=== PATIENT | male | born 1995 ===

== ENCOUNTER 2017-12-25 15:27 | Inpatient (IN) ==
--- NOTE | 2017-12-25 15:48 | ERNOTE ---
Abdominal HPI - General Time Seen by Provider: 12/25/17 15:35 Source: patient Exam Limitations: no limitations - Immun/Allergies/Home Medications Home Medications: HOME MEDICATIONS NK 12/25/17 [Last Taken Unknown] - History of Present Illness Narrative: Patient has had abdominal pain and diarrhea for two days,w as seen in the [place] [facility] and diagnosed with acute appendicitis. [facility] called around 14:[address] discussion with Dr Knapp patient was accepted here, he received pain meds, IV zosyn and fluids and arrived by private car. Dr Knapp present and will assume care Review of Systems - Review of Systems Constitutional: Absent: recent illness, fever ENT: Present: no symptoms reported Respiratory: Absent: shortness of breath Cardiology: Absent: chest pain Gastrointestinal/Abdominal: Present: See HPI Genitourinary: Absent: no symptoms reported Surgical History: Surgical History (Last Updated 12/25/17 @ 15:47 by Gabriela Thomson MD) History of dental surgery Physical Exam - Physical Exam General Appearance: Present: wd/wn, alert, no apparent distress Respiratory: Present: no respiratory distress, normal breath sounds, lungs clear Cardiovascular/Chest: Present: regular rate, rhythm, no murmur Gastrointestinal/Abdominal: Present: normal bowel sounds, tenderness Neurological Exam: Present: alert, oriented, normal mood/affect Skin Exam: Present: normal color, warm/dry ED Progress - Results and Orders Results and Orders: reviewed chart and labs from [place] - Vital Signs Patient's Vital Signs:: I have reviewed the patient's vital signs. Departure Clinical Impression: Appendicitis, acute Qualifiers: Acute appendicitis type: unspecified acute appendicitis type Qualified Code(s) : K35.80 - Unspecified acute appendicitis - Departure Disposition: Still a patient Condition: Fair
[2017-12-25] MEDS ORDERED: NORMAL SALINE 1,000 ML IV ONE (15:49)
--- NOTE | 2017-12-25 16:09 | ERNOTE ---
Abdominal HPI - Narrative Date of Service: 12/25/17 - General Chief Complaint: Abdominal Pain Time Seen by Provider: 12/25/17 15:35 Source: patient Exam Limitations: no limitations - Immun/Allergies/Home Medications Immunizatons: IMMUNIZATION HX Immunizations Up to Date Yes Home Medications: HOME MEDICATIONS NK 12/25/17 [Last Taken Unknown] - History of Present Illness Narrative: James is a very pleasant 22-year-old male who is otherwise healthy. He developed abdominal pain over the last couple of days which has worsened, and is located in the right lower quadrant. This has also been experiencing diarrhea. Over the last several months he has been having 3-4 bowel movements a day. Half of these are loose, half of these are formed. He has not noticed any blood in his stool. He was adopted, his adopted father said they did not receive any family health history that suggested inflammatory bowel disease. He has never had a colonoscopy. His father accompanies him today. He was transferred from [place]. He has felt nauseated but has not vomited. He has not had anything to eat. Date (Duration): 12/23/17 Timing: getting worse Quality: severe Activities at Onset: none Modifying Factors - (Improves): Present: analgesics Modifying Factors - (Worsens): Present: coughing, movement Associated Symptoms: Present: other - diarrhea without blood Prior Abdominal Problems: Present: none Review of Systems - Review of Systems Constitutional: Present: malaise EYE: Present: no symptoms reported ENT: Present: no symptoms reported Respiratory: Present: no symptoms reported Cardiology: Present: no symptoms reported Gastrointestinal/Abdominal: Present: nausea, diarrhea, eating less, drinking less Genitourinary: Present: no symptoms reported, other - dark-colored urine Skin: Present: no symptoms reported Neurological: Present: no symptoms reported Endocrine: Present: no symptoms reported Hematologic/Lymphatic: Present: no symptoms reported Psych: Present: no symptoms reported Surgical History: Surgical History (Last Reviewed 12/25/17 @ 16:04 by America Knapp DO) History of dental surgery Social History: Preferred Language Sinhala Alcohol Use none Drug Use none Physical Exam - Physical Exam General Appearance: Present: mild distress Head Exam: Present: normal inspection Eye Exam: Normal inspection: bilateral Ears, Nose, Throat: Absent: hearing decreased Neck: Present: normal inspection Respiratory: Present: no respiratory distress, normal breath sounds, lungs clear Cardiovascular/Chest: Present: regular rate, rhythm, no murmur Gastrointestinal/Abdominal: Present: normal bowel sounds, McBurney sign, Sher sign Extremity Exam: Present: normal inspection Neurological Exam: Present: alert, oriented, normal mood/affect, no motor/ sensory deficits Skin Exam: Present: normal color ED Progress - Results and Orders Patient's Lab Results:: I have reviewed the patient's lab results. - Vital Signs Patient's Vital Signs:: I have reviewed the patient's vital signs. Vital Signs: Vital Signs 12/25/17 15:43 12/25/17 15:51 Temperature 37.7 C Pulse Rate 79 84 Respiratory Rate 12 12 Blood Pressure 109/55 O2 Sat by Pulse Oximetry 98 98 - Progress/Reassessment Chief Complaint: Abdominal Pain Progress:: Unchanged Plan - Plan Plan: Patient has received Zosyn in [place]. He will receive further IV fluids in the ER. I reviewed his CT scan images. These are consistent with acute appendicitis. It is unusual that he has been having loose stools, I did not see thickening of the terminal ileum, I will evaluate this during surgery. Risks and benefits of the procedure were discussed with the patient, and we will proceed with laparoscopic appendectomy, possible open. He voices understanding and would like to proceed. All questions were answered. Departure Clinical Impression: Appendicitis, acute Qualifiers: Acute appendicitis type: unspecified acute appendicitis type Qualified Code(s) : K35.80 - Unspecified acute appendicitis - Departure Disposition: Still a patient Condition: Fair
--- NOTE | 2017-12-25 16:42 | ANES ---
Anesthesia Pre Procedure Eval Vitals/Labs: Last Vital Signs Temp 37.7 C 12/25/17 15:43 Pulse 81 12/25/17 16:31 Resp 12 12/25/17 16:31 BP 126/51 12/25/17 16:31 Pulse Ox 99 12/25/17 16:31 HOME MEDICATIONS NK 12/25/17 [Last Taken Unknown] - Planned Procedure Planned Procedure: lap appy Medication List Reviewed:: Yes Allergies Verified: Yes Surgical History (Last Reviewed 12/25/17 @ 16:41 by Noel Preciado CRNA) History of dental surgery - Family Anesthesia History Family History:: no untoward family reactions to anesthesia, no familial bleeding tendencies, no family history of clotting disorders, no family history of premature - Airway/Neck/Teeth Within Normal Limits:: Yes Teeth Condition: Intact Mallampatti Score: 4 Thyromental (T-M) distance: > 6 cm Mandibulo Hyoid distance: > 3 cm - Respiratory Respiratory: lungs clear Smoking Status: Never smoker Discussed smoking cessation including day of surgery: No Sleep Apnea currently treated: No Sleep Apnea by current assessment: No Discussed Risks/Treatment of MELI: No - Cardiovascular Heart Sounds: S1 & S2, Regular - Anesthesia Assessment and Plan ASA Class: PS, I, E Anesthesia Type Plan: General ET
[2017-12-25] MEDS ORDERED: BUPIVACAINE HCL 50 ML VIAL IJ ONE (18:00)
[2017-12-25] MEDS ORDERED: HYDROmorphone HCL 2 MG/ML VIAL IV PRN (18:23)
[2017-12-25] MEDS ORDERED: diphenhydrAMINE HCL 50 MG/ML VIAL IV PRN (18:23)
[2017-12-25] MEDS ORDERED: ONDANSETRON HCL/PF 2 MG/ML VIAL IV PRN ×3 (18:23→18:27)
[2017-12-25] MEDS ORDERED: PROCHLORPERAZINE EDISYLATE 5 MG/ML VIAL IV PRN (18:23)
[2017-12-25] MEDS ORDERED: NALOXONE HCL 0.4 MG/ML VIAL IV PRN (18:23)
[2017-12-25] MEDS ORDERED: HYDROcodone/ACETAMINOPHEN 1 EACH TABLET PO PRN ×2 (18:25→18:27)
--- NOTE | 2017-12-25 18:25 | ANES ---
Post Anesthesia Discharge - Transfer of Care Transfer of Care handoff given to nurse: Yes - Discharge from PACU Discharge from PACU when meets criteria: Yes - Discharge to ASU Discharge to ASU-no complications/pt stable: Yes
[2017-12-25] MEDS ORDERED: HYDROmorphone HCL 1 MG/ML DISP.SYRIN IV PRN (18:27)
[2017-12-25] MEDS ORDERED: RINGER'S SOLUTION,LACTATED 1,000 ML IV ONE (18:29)
--- NOTE | 2017-12-25 18:31 | ANES ---
Post Anesthesia Assessment - Vital Signs Vitals: Last Vital Signs Temp 37.7 C 12/25/17 15:43 Pulse 77 12/25/17 16:48 Resp 12 12/25/17 16:48 BP 101/41 12/25/17 16:48 Pulse Ox 99 12/25/17 16:48 Airway Patency: Normal - Mental Status Level Of Consciousness: Awake - Pain Level Pain Score: 6 - N/V Assessment Nausea/Vomiting Presence: None Dehydration:: No
--- NOTE | 2017-12-25 18:36 | OR ---
Operative Report - Dictated Report Narrative: Date of Service: 12/25/17 Procedure: laparoscopic appendectomy with washout Pre-procedure diagnosis: acute appendicitis Post-procedure diagnosis: perforated appendicitis Surgeon: Dr. America Knapp Supervisor Underwriting Clerks: Marguerite Anesthesia: general Indication for procedure: James is a very pleasant 22-year-old gentleman who has been having abdominal pain for the last couple of days, he was seen in the [facility], and found to have acute appendicitis. He was transferred here for surgical management. He has also been having trouble with diarrhea alternating with constipation. He was adopted, but they deny a family history of Crohn's or inflammatory bowel disease, no bloody stools. Description of procedure: After appropriate informed consent was obtained patient was taken to the operating room, placed in the supine position. General anesthesia was achieved. The RN placed a Carolina catheter. The patient was prepped and draped in the usual sterile fashion. A 5 mm periumbilical incision was made, hemostat was used to dissect down to the fascia. A Veress needle was inserted, a saline drop test was performed which was satisfactory. The abdomen was insufflated to 15 mmHg. A 5mm blunt trocar was placed at the umbilicus. The camera was inserted, there was no evidence of a trocar injury. A 12 mm trocar was placed in the left lower quadrant of the abdomen. A 5 mm trocar was placed in the suprapubic region. The patient was placed in a head down, rotated left position, to facilitate exposure. There was significant purulent fluid in all quadrants of the abdomen. The appendix was identified, it appeared consistent with acute perforated appendicitis. A window was made in the mesoappendix. The 45 mm echelon stapler with the white load was placed across the base of the appendix. There was good hemostasis. The echelon 45 mm stapler with a white load was then placed across the mesoappendix. There was good hemostasis. The appendix was removed through an Endo Catch bag. The abdomen was inspected and the staple lines were intact, with good hemostasis. The remainder of the abdomen was inspected and was satisfactory. The abdomen was washed out, to remove the purulent fluid. Culture was taken of the purulent fluid using a trap. A 15 Welsh drain was placed through the suprapubic port site, and sutured in place with a 3-0 nylon. The 12 mm trocar site was closed with an 0 Vicryl suture using a PMI device. The abdomen was desufflated. Local anesthetic was injected. The incisions were closed with inverted interrupted 4-0 Monocryl sutures. Mastisol and Steri-Strips were applied. The patient tolerated the procedure well and was transported to the PACU in satisfactory condition. Estimated blood loss: minimal Complications: none Specimens to pathology: appendix and cultures Disposition: The patient will be admitted to the floor for observation and IV antibiotics.
[2017-12-25] MEDS: PIPERACILLIN SODIUM/TAZOBACTAM 3.375 GM in DEXTROSE 5 % IN WATER 100 ML IV SCH ×2 (19:47)
[2017-12-25] MEDS: SACCHAROMYCES BOULARDII 250 MG CAPSULE PO SCH (20:59)
[2017-12-26] MEDS: RINGER'S SOLUTION,LACTATED 1,000 ML IV PRN ×2 (01:05→07:27)
[2017-12-26] MEDS ORDERED: HYDROcodone/ACETAMINOPHEN 1 EACH TABLET ONE (03:01)
[2017-12-26] MEDS: PIPERACILLIN SODIUM/TAZOBACTAM 3.375 GM in DEXTROSE 5 % IN WATER 100 ML IV SCH ×6 (03:02→18:39)
[2017-12-26 05:26] LABS: Hematocrit 39.9 % (42.0-52.0); Hemoglobin 13.5 gm/dL (13.5-18.0); Mean Cell Volume 90.1 fl (78-100); Mean Corpuscular Hemoglobin 30.5 pg (27-31); Mean Corpuscular Hgb Conc 33.8 g/dl (32-36); Mean Platelet Volume 10.1 fl (8-11.3); Neutrophil # 8.1 K/mm3 (1.3-6.0); Neutrophil % 80.9 % (42-75.0); Platelet Count 120 K/mm3 (150-450); Red Blood Count 4.43 M/mm3 (4.7-6.0); Red Cell Distribution Width 12.4 % (11.5-14.0)
[2017-12-26 05:38] LABS: Anion Gap 10.7 mmol/L (6.8-13.8); BUN/Creatinine Ratio 17.9 (9.0-21.6); Calcium * 8.4 mg/dL (7.9-10.9); Carbon Dioxide 29.2 mmol/L (24-32.6); Estimated Creat Clear 101.4; Potassium 3.9 mmol/L (3.4-4.6)
[2017-12-26] MEDS: SACCHAROMYCES BOULARDII 250 MG CAPSULE PO SCH ×2 (08:35→21:28)
[2017-12-26] MEDS: HYDROcodone/ACETAMINOPHEN 1 EACH TABLET PO PRN ×3 (10:25→23:08)
--- NOTE | 2017-12-26 10:48 | PN ---
Subjective - Date and Time Seen Date: 12/26/17 Time: 10:42 Subjective Narrative: James is feeling better than before surgery, but still having significant pain. He has pain on both the right and lower quadrant. He denies any nausea or vomiting. The pain medication is working. He is voiding more, and it is a helium arc welder color. Objective - Review of Systems Generalized/Overall Review: Reports: Malaise EENTM: Reports: No Symptoms Reported Respiratory: Reports: No Symptoms Reported Cardiac: Reports: No Symptoms Reported Abdominal: Reports: Abdominal Pain, Other - He had a bowel movement this morning Genitourinary Symptoms: Reports: No Symptoms Reported Neurological: Reports: No Symptoms Reported Skin: Reports: No Symptoms Reported Endocrine: Reports: No Symptoms Reported - Vitals Vitals: Last Vital Signs Temp 36.6 C 12/26/17 10:27 Pulse 84 12/26/17 10:27 Resp 18 12/26/17 10:27 BP 113/57 12/26/17 10:27 Pulse Ox 98 12/26/17 10:27 - Abnormal Lab Findings Abnormal Lab Findings: Abnormal Lab Results 12/26/17 12/26/17 Range/Units 05:20 05:20 RBC 4.43 L (4.7-6.0) M/mm3 Hct 39.9 L (42.0-52.0) % Plt Count 120 L (150-450) K/mm3 Neutrophils % 80.9 H (42-75.0) % Lymphocytes % 10.7 L (20-51) % Neutrophils # 8.1 H (1.3-6.0) K/mm3 Lymphocytes # 1.07 L (1.5-3.5) k/mm3 Random Glucose 112 H (70-110) mg/dL - Exam Constitutional: Present: Oriented x3 Respiratory: Present: lungs clear, no respiratory distress Cardiovascular/Chest: Present: no edema, no JVD Abdomen: Present: Normal bowel sounds, nondistended, tender Skin Exam: Present: normal color Assessment/Plan Plan Narrative: Patient is still having significant pain. I think he needs to stay an additional day for IV antibiotics. He had significant purulent peritonitis present. I will leave the GILLES drain. I am awaiting the culture taken during surgery for sensitivities to antibiotics. Thankfully his lactic acidosis resolved after surgery and fluids. - Problems/Diagnosis (1) Acute perforated appendicitis Problem: Resolved (2) Status post laparoscopic appendectomy Problem: Acute (3) Lactic acidosis Problem: Resolved (4) Sepsis Problem: Resolved
[2017-12-27] MEDS: PIPERACILLIN SODIUM/TAZOBACTAM 3.375 GM in DEXTROSE 5 % IN WATER 100 ML IV SCH ×6 (03:01→18:44)
[2017-12-27] MEDS: HYDROcodone/ACETAMINOPHEN 1 EACH TABLET PO PRN ×2 (05:25→16:06)
[2017-12-27] MEDS: SACCHAROMYCES BOULARDII 250 MG CAPSULE PO SCH ×2 (08:18→21:10)
--- NOTE | 2017-12-27 13:00 | PN ---
Subjective - Date and Time Seen Date: 12/27/17 Time: 09:00 Subjective Narrative: Patient is feeling better today, but still has pain when he takes a deep breath under the diaphragm. This is likely due to the GILLES drain. Overall he is slightly improved, but is still uncomfortable. He had a bowel movement. He denies nausea or vomiting, but does not have an appetite. He is walking more than he was previously. Objective - Review of Systems Generalized/Overall Review: Reports: Malaise Respiratory: Reports: Other - Pain with respiration Abdominal: Reports: Abdominal Pain - Vitals Vitals: Last Vital Signs Temp 36.9 C 12/27/17 10:35 Pulse 55 L 12/27/17 10:35 Resp 16 12/27/17 10:35 BP 115/66 12/27/17 10:35 Pulse Ox 98 12/27/17 10:35 - Exam Constitutional: Present: Alert, Oriented x3, Cooperative Respiratory: Present: normal breath sounds, no respiratory distress, no accessory muscle use Cardiovascular/Chest: Present: regular rate, rhythm, no edema Abdomen: Present: Normal bowel sounds, soft, tender Appearance: Present: appropriate appearance Eye contact: Present: cooperative Assessment/Plan Plan Narrative: He removed his GILLES drain. He is still having significant pain. I'm awaiting the results from the culture from surgery. I would like to have the sensitivities for oral antibiotics. He had significant contamination of his abdomen with generalized peritonitis, with purulent fluid throughout the abdomen. He is at a high risk for developing a postoperative abscess seen or ileus. We'll check with him this afternoon and see how he is feeling. 1330- patient continues to have abdominal pain and general malaise, due to the generalized peritonitis, I would like him to stay an additional day for IV antibiotics. - Problems/Diagnosis (1) Acute perforated appendicitis Problem: Resolved (2) Status post laparoscopic appendectomy Problem: Acute (3) Lactic acidosis Problem: Resolved (4) Sepsis Problem: Resolved (5) Generalized (acute) peritonitis Problem: Acute
[2017-12-28] MEDS: HYDROcodone/ACETAMINOPHEN 1 EACH TABLET PO PRN (02:29)
[2017-12-28] MEDS: PIPERACILLIN SODIUM/TAZOBACTAM 3.375 GM in DEXTROSE 5 % IN WATER 100 ML IV SCH ×2 (02:30)
[2017-12-28] MEDS ORDERED: PANTOPRAZOLE SODIUM 20 MG TABLET.DR PO PRN (07:20)
[2017-12-28] MEDS ORDERED: AMOX TR/POTASSIUM CLAVULANATE 875 MG TABLET PO SCH ×2 (09:00)
[2017-12-28] MEDS ORDERED: SULFAMETHOXAZOLE/TRIMETHOPRIM 1 TAB TABLET PO SCH (09:00)
--- NOTE | 2017-12-28 09:31 | PN ---
Subjective - Date and Time Seen Date: 12/28/17 Time: 09:28 Subjective Narrative: He is feeling much better today, pain is improved. He feels ready for discharge. The oral pain medicine is effective. He had a bowel movement. Objective - Review of Systems Generalized/Overall Review: Reports: No Symptoms Reported Respiratory: Reports: No Symptoms Reported Abdominal: Reports: Abdominal Pain - Improved - Vitals Vitals: Last Vital Signs Temp 36.7 C 12/28/17 07:49 Pulse 53 L 12/28/17 07:49 Resp 16 12/28/17 07:49 BP 104/50 12/28/17 07:49 Pulse Ox 98 12/28/17 07:49 - Exam Constitutional: Present: Alert, Oriented x3, Cooperative Abdomen: Present: Normal bowel sounds, soft, tender Skin Exam: Present: normal color Appearance: Present: appropriate appearance Eye contact: Present: cooperative, good eye contact Thoughts: Present: normal thought pattern Assessment/Plan Plan Narrative: We'll plan to discharge home today. His culture and sensitivity just returned, he is MRSA positive. I placed him on Bactrim. He will follow up with me in 2 weeks. He understands to call if he has any problems such as abdominal pain, fevers, nausea, vomiting, or any other changes. Due to the widespread peritonitis here for the high risk for a postoperative abscess. - Problems/Diagnosis (1) Acute perforated appendicitis Problem: Resolved (2) Status post laparoscopic appendectomy Problem: Acute (3) Lactic acidosis Problem: Resolved (4) Sepsis Problem: Resolved (5) Generalized (acute) peritonitis Problem: Acute (6) MRSA (methicillin resistant staph aureus) culture positive Problem: Acute
[2017-12-28] MEDS: SACCHAROMYCES BOULARDII 250 MG CAPSULE PO SCH (09:57)
--- NOTE | 2017-12-28 12:40 | DS ---
(1) Acute perforated appendicitis Problem: Resolved (2) Status post laparoscopic appendectomy Problem: Acute (3) Lactic acidosis Problem: Resolved (4) Sepsis Problem: Resolved Qualifiers: Sepsis type: methicillin resistant Staphylococcus aureus Qualified Code(s) : A41.02 - Sepsis due to Methicillin resistant Staphylococcus aureus (5) Generalized (acute) peritonitis Problem: Acute (6) MRSA (methicillin resistant staph aureus) culture positive Problem: Acute Description of Stay: pt had a ct showing acute appy. he had diffuse peritonitis at surgery with significant contamination. drain was placed. he stayed for pain and IV antibiotics for generalized peritonitis and sepsis. he is now ready for dc on bactrim and oral pain meds. Procedures Performed: see notes below List Procedures: lap appy with washout Results and Findings: Lab Pending Results 12/25/17 18:45: Pathology Specimen Spec to path 12/25/17 22:22: Lactic Acid, Venous 0.8 12/26/17 05:20: WBC 10.0, RBC 4.43 L, Hgb 13.5, Hct 39.9 L, MCV 90.1, MCH 30.5, MCHC 33.8, RDW 12.4, Plt Count 120 L, MPV 10.1, Immature Gran % (Auto) 0.10, Immature Gran # (Auto) 0.01, Neutrophils % 80.9 H, Lymphocytes % 10.7 L, Monocytes % 7.4, Eosinophils % 0.6, Basophils % 0.3, Nucleated RBC % 0.0, Neutrophils # 8.1 H, Lymphocytes # 1.07 L, Monocytes # 0.7, Eosinophils # 0.1, Absolute Basophils 0.0 12/26/17 05:20: Sodium 140, Plasma Sodium 140, Potassium 3.9, Chloride 104, Carbon Dioxide 29.2, Anion Gap 10.7, BUN 21, Creatinine 1.17, Est GFR (Non-Af Amer) 82, BUN/Creatinine Ratio 17.9, Random Glucose 112 H, Calcium 8.4 12/26/17 05:20: Lactic Acid, Venous 0.7 Discharge Location: Home Disposition: Home self-care Condition: Stable Discharge Activity: Activity as tolerated Discharge Diet: General/regular food Problem Oriented Discharge Instructions to Patient/Family: Laparoscopic Appendectomy, Adult, Care After, [id number] Additional Patient Instructions (free text): follow up with Jenn Knapp in two weeks Prescriptions (Any new or edited meds): Sulfamethoxazole/Trimethoprim [Bactrim Ds] 1 tab PO BID #10 tablet HYDROcodone/ACETAMINOPHEN [[place] 5-325] 2 each PO Q6H PRN #30 tablet PRN Reason: Pain Complete Home Medications List: Complete Home Medication List: Omeprazole Magnesium [Prilosec Otc] 20 mg PO DAILY PRN 12/25/17 HYDROcodone/ACETAMINOPHEN [[place] 5-325] 2 each PO Q6H PRN #30 tablet 12/28/17 Sulfamethoxazole/Trimethoprim [Bactrim Ds] 1 tab PO BID #10 tablet 12/28/17
[2017-12-28 13:23] VITALS: BP 112/60
== END 2017-12-28 14:00 | disposition home or self-care (01) | DRG 853 ==
LOC: ER 15:27 → AMB 16:30 → MS 16:30 → AMB 16:54
PROVIDERS: ADMIT Surgery; ATTEND Surgery
CPT/HCPCS: 36415; 80048; 83605; 85025; 87070; 87077; 87186; 88304; 99284